=== PATIENT | female | born 1985 | race Caucasian/White ===

== ENCOUNTER 2023-07-05 06:38 | Emergency (ER) | payer OTHER, SELFPAY ==
--- NOTE | ~2023-07-05 | CT_ITS ---
EXAMINATION: CT ABDOMEN AND PELVIS WITH CONTRAST CLINICAL INFORMATION: Lower abdominal pain. COMPARISON: Pelvic ultrasound 07/05/2023 TECHNIQUE: Multidetector volumetric images were obtained from the superior aspect of the liver through the pubic symphysis following administration 85 mL of Omnipaque 350 intravenous contrast. Sagittal and coronal reformatted images were obtained on the technologist's workstation. Oral contrast: No This CT examination was performed using dose optimization techniques as appropriate, variously including the following: *Automated exposure control *Adjustment of mA and/or kV according to patient size (this includes techniques or standardized protocols for targeted exams where dose is matched to indication/reason for exam; i.e. extremities or head) *Use of iterative reconstruction technique DLP: 613 mGy-cm FINDINGS: LUNG BASES: No pleural or pericardial effusion. LIVER, GALLBLADDER, AND BILIARY TREE: The liver is decreased in attenuation. The liver measures 21.3 cm in sagittal dimension. No focal hepatic lesion or biliary ductal dilatation is present. The gallbladder is nonvisualized. There is extensive coarse calcification along the course of the cystic duct and in the gallbladder fossa. PANCREAS: Unremarkable. SPLEEN: Unremarkable. ADRENAL GLANDS: Unremarkable. KIDNEYS AND URETERS: The kidneys are symmetric in size and enhancement. Bilateral simple renal cysts. No hydronephrosis or perinephric stranding. BLADDER: Unremarkable. GASTROINTESTINAL TRACT: Small and large bowel loops are of normal caliber. No small bowel obstruction. Moderate fecal retention in the colon. ABDOMINAL WALL: No significant hernia is appreciated. LYMPH NODES: Subcentimeter retroperitoneal and mesenteric lymph nodes. VASCULAR: Normal caliber abdominal aorta. PELVIC VISCERA: Uterus is surgically absent. OSSEOUS STRUCTURES: No destructive bone lesions. CT/CT abdomen pelvis w IV con IMPRESSION: Nonvisualization of the gallbladder, however, there are coarse calcifications along the course of the cystic duct and within the gallbladder fossa. This could represent a contracted gallbladder with gallstones. Correlation may be made with fasting right upper quadrant ultrasound. Hepatomegaly and hepatic steatosis.
--- NOTE | ~2023-07-05 | US_ITS ---
EXAMINATION: US PELVIS CLINICAL INFORMATION: Pelvic pain. COMPARISON: None available. TECHNIQUE: Ultrasound of the pelvis is performed using both transabdominal and transvaginal transducers along with Doppler. Transvaginal imaging is performed due to inadequate visualization transabdominally. FINDINGS: Uterus: The uterus is not visualized. Adnexa: Neither ovary is visualized. No free fluid in pelvis. US/US pelvic and transvaginal IMPRESSION: Limited study. Unremarkable pelvic ultrasound.
[2023-07-05 08:00] VITALS: BP 136/84; PULSE 69; RESP 16; TEMP 36.6; O2SAT 99; BMI 29.4
[2023-07-05 08:24] LABS: MANUAL DIFF FLAG NO
[2023-07-05 08:31] LABS: Basophils Percent Auto 0.6 % (0-2); Eosinophils Absolute Auto 0.5 X10*3/uL (0.0-0.4); Eosinophils Percent Auto 7.3 % (0-4); Hematocrit 45.5 % (37.0-47.0); Hemoglobin 15.3 g/dl (12.0-16.0); Imm Gran Abs Auto 0.01 X10*3/uL (0.00-0.03); Imm Gran Pct Auto 0.2 % (0.0-0.4); Lymphocytes Absolute Auto 1.9 X10*3/uL (1.2-4.9); Lymphocytes Percent Auto 29.5 % (20-40); Mean Corpuscular HGB Conc 33.6 g/dl (31.0-35.0); Mean Corpuscular Volume 80.4 fL (80.0-98.0); Mean Platelet Volume 10.3 fL (9.4-12.3); Monocytes Absolute Auto 0.4 X10*3/uL (0.1-1.2); Monocytes Percent Auto 5.9 % (2-11); Neutrophils Absolute Auto 3.7 x10*3/uL (2.0-8.3); Neutrophils Percent Auto 56.5 % (45-73); Platelet Count 368 X10*3/uL (160-400); Red Blood Count 5.66 X10*6/uL (4.20-5.50); Red Cell Distribution Width 12.9 % (11.0-16.0); White Blood Count 6.5 X10*3/uL (4.8-10.8)
[2023-07-05 08:38] LABS: Appearance Urine Clear; Color Urine Yellow; Glucose Urine UA >=1000 mg/dL (Negative); Leukocyte Esterase Urine Negative (Negative); Nitrite Urine Negative (Negative); PH 5.5 (5.0-9.0); Specific Gravity - Urine >= 1.030 (1.005-1.025); UMIC TRIGGER UACC YES; Urine Blood Negative (Negative); Urine Ketones Negative (Negative); Urine Protein Negative (Neg-Trace)
[2023-07-05 08:40] LABS: UPreg QC Valid YES; Urine Pregnancy NEGATIVE (NEGATIVE)
[2023-07-05 08:41] LABS: Alanine Aminotransferase 16 U/L (0-31); Albumin Level 4.2 g/dL (3.5-5.0); Alkaline Phosphatase 126 U/L (39-117); Anion Gap 11 (12-20); Aspartate Amino Transferase 8 U/L (5-31); Bilirubin Total 0.3 mg/dL (0.0-1.0); Blood Urea Nitrogen 11 mg/dL (9-16); Calcium 9.9 mg/dL (8.4-10.2); Carbon Dioxide 28 mmol/L (22-29); Chloride 102 mmol/L (96-108); Creatinine Clr Calc Pharmacy 92.9; Estimated Glomerular Filt Rate > 60; Glucose Random 442 mg/dL (60-115); Sodium 137 mmol/L (135-145); Total Protein 8.3 g/dL (6.5-8.0)
[2023-07-05 08:43] LABS: Bacteria Urine None Seen (None Seen); Hyaline Casts Urine 0-2 /LPF (0-2); Squamous Epithelial Cell Urine 0-2 /HPF (0-2); WBC Urine 0-5 /HPF (0-5)
--- NOTE | 2023-07-05 09:53 | PC.NURSE ---
PT TO AND FROM ULTRASOUND. AWAITING RESULTS. NO ACUTE DISTRESS NOTED.
--- NOTE | 2023-07-05 09:57 | ED.GENADULT ---
HPI - General Adult General Chief complaint: General Medical Stated complaint: general med Time Seen by Provider: 07/05/23 09:10 Source: patient Mode of arrival: ambulatory Limitations: no limitations History of Present Illness HPI narrative: 38-year-old female history of obesity,diabetes ( no longer on medication because she stopped them) presents to the emergency department with complaints of lower abdominal discomfort, severe, pain described as pressure / pain worse with movement, lifting, better at rest ongoing for the past week. Patient also reports that she has been having some white thick vaginal discharge, this is also been going on for over week. Patient also reports intermittent dizziness over the past week and fatigue and malaise. Describes dizziness as room spinning. Not currently dizzy at this time. Denies visual disturbances, dizziness, nausea, vomiting, headache, vision changes, weakness, chest pain, shortness of breath, fevers and chills. Related Data Previous Rx's Medication Instructions Recorded fluconazole 150 mg tablet 150 mg PO Q3D 2 doses #2 tabs 07/05/23 metformin 500 mg tablet 500 mg PO BID 30 days #60 tabs 07/05/23 Allergies Allergy/AdvReac Type Severity Reaction Status Date / Time No Known Allergies Allergy Verified 07/05/23 08:15 Review of Systems Review of Systems: Constitutional : No Weight loss, No Fever, No Chills, No Fatigue, No Malaise ENT/Mouth : No sore throat, No Rhinorrhea Eyes: No Eye Pain, No Swelling, No Redness Cardiovascular : No Chest Pain, No SOB, No Dyspnea on Exertion, No Orthopnea, No Edema, No Palpitations Respiratory : No Cough, No Sputum, No Wheezing Gastrointestinal : No Nausea, No Vomiting, No Diarrhea, No Constipation, + abdominal Pain, No Hematochezia, No Melena Genitourinary : No Dysuria, No Urinary Frequency, No Hematuria, + vaginal discharge Musculoskeletal : No joint pain, No Myalgias, No Joint Swelling Skin : No Skin Lesions, No rash Neuro : No Weakness, No Numbness, No Dizziness, No Headache Psych : No Anxiety/Panic, No Depression All other systems reviewed and are negative Yes all other systems are reviewed and are negative PMFSH Social History Social History Smoked in Last 30 Days: No Use of substances other than those prescribed or required for medical reasons: No Advance Directives: No Physical Exam ED Vital Signs: Vital Signs - 24 hr 07/05/23 08:00 Temperature 97.8 F Pulse Rate 69 Respiratory Rate 16 Blood Pressure 136/84 Pulse Oximetry 99 Oxygen Delivery Method Room Air BMI result Body Mass Index 29.4 Course Reevaluation(s) Reevaluation #1: CBC within normal limits no acute findings. Chemistry without acute electrolyte abnormalities requiring intervention. Patient's glucose 442, as stated previously patient is a diabetic, is not taking medications because she stopped them. She used to be on metformin however not anymore. Patient's urine clean without infection. Urine negative. Ultrasound pelvic and transvaginal limited study unremarkable pelvic ultrasound, Doppler was canceled because patient then reported that she had a hysterectomy with oophorectomy. CT abd and pelvis pending and trich and yeast pending Time: 11:14 Reevaluation #2: Sugar improved to 245, patient feeling better, no pain at this time. Swab is showing positive yeast, will treat with fluconazole. Pending CT study patient will be discharged home with outpatient follow-up. Time: 11:26 Reevaluation #3: CT of the abdomen pelvis with no acute findings, nonvisualization of the gallbladder with coarse calcifications along the course of the cystic duct and within the gallbladder fossa could represent contracted gallbladder with gallstones. Patient's pain is not localized to right upper quadrant, negative Guzmán sign, I do not suspect acute cholecystitis, cholangitis, choledocholithiasis. No need for emergent intervention at this time. Will give GI follow-up. Will treat for yeast. Will have her follow up with PCP and GI. Educated patient on diagnosis and treatment plan, answered all question, patient verbalizes understanding. At this time patient will be discharged home, advised to return with new or worsening symptoms. Educated on worrisome signs and symptoms and when to return. At this time I feel comfortable discharge home. Time: 11:58 Medications Administered Discontinued Medications Generic Name Dose Route Start Last Admin Trade Name Freq PRN Reason Stop Dose Admin Sodium Chloride 1,000 mls @ 999 mls/hr 07/05/23 10:00 07/05/23 10:22 Ns IV 07/05/23 11:00 999 mls/hr .Q1H1M ALYSON Administration Insulin Human Regular 8 unit 07/05/23 09:54 07/05/23 10:30 Insulin Regular, Human 100 Unit/Ml 3 Ml Vial 0.1 unit/kg (8 unit) 07/05/23 09:55 8 unit IVPUSH Administration ONCE ONE Iohexol 100 ml 07/05/23 10:51 07/05/23 10:52 Iohexol 350 Mg/Ml 100 Ml Infus..Btl IV 07/05/23 10:52 85 ml ONCE ONE Administration Ketorolac Tromethamine 30 mg 07/05/23 10:28 07/05/23 10:34 Ketorolac Tromethamine 15 Mg/Ml Vial IVPUSH 07/05/23 10:29 30 mg ONCE ONE Administration Medical Decision Making Medical Decision Making [facility] Narrative: [id number] 38-year-old female presents with lower abdominal discomfort, vaginal discharge dizziness, fatigue and malaise over the past week. Reports she was diagnosed with diabetes years ago however non med compliant she stopped taking her medications when she came from [place] while ago. Physical examination benign. Neuro nonfocal. Cerebellar intact. NIH stroke scale 0. Concern for musculoskeletal abdominal discomfort versus hernia versus abdominal cramping unlikely appendicitis, diverticulitis, pancreatitis, cholecystitis. Patient with hysterectomy and oophorectomy, unlikely that this is torsion, ectopic , acute abdomen. Patient's white vaginal discharge likely yeast, denies concern for STDs. Also patient noted to have high sugar on initial labs, also contributing to the fact that this is most likely a yeast infection. Patient likely has poorly controlled type 2 diabetes, as she is not taking her medications. no signs of abdominal aortic dissection Plan at this time labs, imaging, orthostatic vitals, insulin, fluids. Will obtain Trichomonas and yeast test. Differential Diagnosis Differential Diagnoses: The differential diagnosis associated with the presentation includes Concern for musculoskeletal abdominal discomfort versus hernia versus abdominal cramping unlikely appendicitis, diverticulitis, pancreatitis, cholecystitis. Patient with hysterectomy and oophorectomy, unlikely that this is torsion, ectopic , acute abdomen. Patient's white vaginal discharge likely yeast, denies concern for STDs. Also patient noted to have high sugar on initial labs, also contributing to the fact that this is most likely a yeast infection. Patient likely has poorly controlled type 2 diabetes, as she is not taking her medications. no signs of abdominal aortic dissection Admission/Observation Consideration of admission/observation: Escalation of care including admission/observation considered unlikey Lab Data [facility] Lab Attestation statement: I reviewed the patient's lab results. 07/05/23 08:16 07/05/23 08:16 Labs: Lab Results 07/05/23 07/05/23 Range/Units 08:16 11:22 WBC 6.5 (4.8-10.8) X10*3/uL RBC 5.66 H (4.20-5.50) X10*6/uL Hgb 15.3 (12.0-16.0) g/dl Hct 45.5 (37.0-47.0) % MCV 80.4 (80.0-98.0) fL MCH 27.0 (27.0-33.0) pg MCHC 33.6 (31.0-35.0) g/dl RDW 12.9 (11.0-16.0) % Plt Count 368 (160-400) X10*3/uL MPV 10.3 (9.4-12.3) fL Immature Gran % (Auto) 0.2 (0.0-0.4) % Neut % (Auto) 56.5 (45-73) % Lymph % (Auto) 29.5 (20-40) % Whitley % (Auto) 5.9 (2-11) % Eos % (Auto) 7.3 H (0-4) % Baso % (Auto) 0.6 (0-2) % Lymph # (Auto) 1.9 (1.2-4.9) X10*3/uL Whitley # (Auto) 0.4 (0.1-1.2) X10*3/uL Eos # (Auto) 0.5 H (0.0-0.4) X10*3/uL Baso # (Auto) 0.0 (0.0-0.2) X10*3/uL Abs Immat Gran (auto) 0.01 (0.00-0.03) X10*3/uL Absolute Neuts (auto) 3.7 (2.0-8.3) x10*3/uL Absolute Nucleated RBC 0.000 (0.0-0.012) X10*3/uL Nucleated RBC % (auto) 0.0 (0.0-0.2) /100WBC Sodium 137 (135-145) mmol/L Potassium 4.0 (3.3-5.1) mmol/L Chloride 102 (96-108) mmol/L Carbon Dioxide 28 (22-29) mmol/L Anion Gap 11 L (12-20) BUN 11 (9-16) mg/dL Creatinine 0.85 (0.5-1.4) mg/dL Estim Creat Clear Calc 92.9 Estimated GFR > 60 POC Glucose 245 H (60-115) mg/dL Random Glucose 442 H* (60-115) mg/dL Calcium 9.9 (8.4-10.2) mg/dL Total Bilirubin 0.3 (0.0-1.0) mg/dL AST 8 (5-31) U/L ALT 16 (0-31) U/L Alkaline Phosphatase 126 H (39-117) U/L Total Protein 8.3 H (6.5-8.0) g/dL Albumin 4.2 (3.5-5.0) g/dL Urine Color Yellow Urine Appearance Clear Urine pH 5.5 (5.0-9.0) Ur Specific Slater >= 1.030 H (1.005-1.025) Urine Protein Negative (Neg-Trace) mg/dL Urine Glucose (UA) >=1000 H (Negative) mg/dL Urine Ketones Negative (Negative) mg/dL Urine Blood Negative (Negative) Urine Nitrite Negative (Negative) Ur Leukocyte Esterase Negative (Negative) Urine RBC 3-5 H (0-2) /HPF Urine WBC 0-5 (0-5) /HPF Ur Squamous Epith Cells 0-2 (0-2) /HPF Urine Bacteria None Seen (None Seen) Hyaline Casts 0-2 (0-2) /LPF Urine Test NEGATIVE (NEGATIVE) Core Measures AMI core measures followed: Yes Measure exclusions: not indicated Critical Care Time Critical Care Time Critical Care Time: No Discharge Plan Discharge Clinical Impression: Lower abdominal pain, Hyperglycemia, Yeast infection Patient Disposition: Home, Self-Care Instructions: Yeast Infection (ED), Abdominal Pain (ED), Diabetic Hyperglycemia (ED) Additional Instructions: Take your medications as prescribed. If you were prescribed antibiotics today, it is important that you take your medication to their entirety, do not skip any doses, do not finish them early. Follow-up with your primary care provider this week. Follow-up with telecine operator Return to the emergency department with new or worsening symptoms. Such as fevers, chills, chest pain, shortness of breath, nausea, vomiting, dizziness, headache, vision changes, lethargy In case of emergency call 911 your sugar was noted to be 442, since you are not on medications for diabetes, it is important that you start taking metformin 500 mg twice a day. Please follow-up with your primary care provider [place] [facility] medicamentos seg?n lo recetado. Si hoy te recetaron antibi?ticos, es importante que tomes tu medicaci?n en yadav totalidad, no te saltes ninguna dosis, no las termines antes de tiempo. Leif un seguimiento con yadav proveedor de atenci?n primaria esta semana. Seguimiento con gastroenter?logo. Regrese al departamento de emergencias si los s?ntomas son nuevos o empeoran. [place] fiebre, escalofr?os, dolor de pecho, dificultad para respirar, n?useas, v?mitos, mareos, dolor de thelma, cambios en la visi?n, letargo. En amisha de emergencia llame al 911. Se observ? que yadav nivel de az?car era 442, ya que no est? tomando medicamentos para la diabetes, es importante que comience a luis metformina 500 mg dos veces al d?a. Por favor leif un seguimiento con yadav proveedor de atenci?n primaria. CT/CT abdomen pelvis w IV con IMPRESSION: Nonvisualization of the gallbladder, however, there are coarse calcifications along the course of the cystic duct and within the gallbladder fossa. This could represent a contracted gallbladder with gallstones. Correlation may be made with fasting right upper quadrant ultrasound. Hepatomegaly and hepatic steatosis. US/US pelvic and transvaginal IMPRESSION: Limited study. Unremarkable pelvic ultrasound. Prescriptions: New metformin 500 mg tablet 500 mg PO BID 30 Days Qty: 60 0RF fluconazole 150 mg tablet 150 mg PO Q3D Qty: 2 0RF Referrals: Physician,Unknown J [Primary Care Provider] - 2 days Stand Alone Forms: Work/School Release Print Language: Swedish
[2023-07-05] MEDS: 0.9 % Sodium Chloride 1,000 ML 999 ML IV (10:22)
[2023-07-05] MEDS: Insulin Regular, Human 100 UNIT/ML 3 ML VIAL 8 UNIT IVPUSH (10:30)
[2023-07-05] MEDS: Ketorolac Tromethamine 15 MG/ML VIAL 30 MG IVPUSH (10:34)
[2023-07-05] MEDS: iohexoL 350 MG/ML 100 ML INFUS..BTL IV (10:52)
[2023-07-05 11:25] LABS: Glucose, Whole Blood 245 mg/dL (60-115)
== END 2023-07-05 12:26 | disposition home or self-care (01) ==
PROVIDERS: Emergency Provider Emergency Medicine
DX: R10.30 Lower abdominal pain, unspecified (principal); B37.9 Candidiasis, unspecified; N89.8 Other specified noninflammatory disorders of vagina; R42 Dizziness and giddiness; R53.83 Other fatigue; E11.65 Type 2 diabetes mellitus with hyperglycemia; Z91.148 Patient's other noncompliance with medication regimen for other reason; Z79.899 Other long term (current) drug therapy; Z79.4 Long term (current) use of insulin
CPT/HCPCS: 36415; 74177; 76830; 76856; 80053; 81001; 81025; 82947; 85025; 96361; 96374; 96375; 99284; J1885; Q9967

== ENCOUNTER 2023-12-28 11:28 | Emergency (ER) | payer OTHER, SELFPAY ==
--- NOTE | ~2023-12-28 | CT_ITS ---
EXAMINATION: CT ABDOMEN AND PELVIS WITH CONTRAST CLINICAL INFORMATION: Right lower quadrant pain. COMPARISON: CT abdomen pelvis dated 07/05/2023. TECHNIQUE: Multidetector volumetric images were obtained from the superior aspect of the liver through the pubic symphysis following administration 85 mL of Omnipaque 350 intravenous contrast. Sagittal and coronal reformatted images were obtained on the technologist's workstation. Oral contrast: No This CT examination was performed using dose optimization techniques as appropriate, variously including the following: *Automated exposure control *Adjustment of mA and/or kV according to patient size (this includes techniques or standardized protocols for targeted exams where dose is matched to indication/reason for exam; i.e. extremities or head) *Use of iterative reconstruction technique DLP: 668 mGy-cm FINDINGS: LUNG BASES: The lung bases are clear. There is no pleural effusion. Heart size is normal. No pericardial effusion. LIVER, GALLBLADDER, AND BILIARY TREE: The liver is enlarged, measuring 22 cm in craniocaudal dimension. It demonstrates diffuse decreased attenuation consistent with hepatic steatosis. No focal hepatic lesion or biliary ductal dilatation is present. The gallbladder is nonvisualized. There is extensive coarse calcification along the course of the cystic duct and in the gallbladder fossa, unchanged from prior exam. PANCREAS: Unremarkable. SPLEEN: Unremarkable. ADRENAL GLANDS: Unremarkable. KIDNEYS AND URETERS: The kidneys are normal in size, shape, and attenuation. No hydronephrosis, hydroureter, or calculi seen. No perinephric stranding. There are stable bilateral renal cysts. BLADDER: Unremarkable. GASTROINTESTINAL TRACT: The small bowel and colon are normal in caliber. There is no pericolonic inflammatory change. The appendix is not definitively visualized, however, there are no inflammatory changes within the right lower quadrant to indicate an acute inflammatory process. ABDOMINAL WALL: No significant hernia is appreciated. LYMPH NODES: No retroperitoneal or pelvic lymphadenopathy. VASCULAR: No abdominal aortic aneurysm. PELVIC VISCERA: The uterus is surgically absent. OSSEOUS STRUCTURES: Unremarkable. CT/CT abdomen pelvis w IV con IMPRESSION: The liver is enlarged and steatotic, similar to the prior examination. The gallbladder is nonvisualized. There is extensive coarse calcification along the course of the cystic duct and in the gallbladder fossa, unchanged from prior exam. The appendix is not definitively visualized, however, there are no inflammatory changes within the right lower quadrant to indicate an acute inflammatory process. Fleischner guidelines were followed.
--- NOTE | 2023-12-28 11:36 | ED_ITS ---
HPI - General Adult General Chief complaint: Nausea/Vomiting/Diarrhea Stated complaint: vomiting, lower abd pain Time Seen by Provider: 12/28/23 16:33 Source: patient Mode of arrival: ambulatory Limitations: no limitations History of Present Illness HPI narrative: This is a 38-year-old female history of poorly-controlled diabetes ( took her self off diabetic meds), recent hysterectomy presenting to the emergency department with complaints of lower abdominal pain , nausea, vomiting, fatigue and malaise for the past 3 days worsening. Patient reports she does S does not feel well. Patient is not med compliant with her diabetic medications havent been on them for years , she stopped metformin because it caused some GI upset. Feeling slightly lightheaded at times not now. She denies fevers, chills, chest pain, shortness of breath, headache, vision changes, diarrhea, changes in urination, headache, neck pain, recent sick contacts. Related Data Previous Rx's Medication Instructions Recorded fluconazole 150 mg tablet 150 mg PO Q3D 2 doses #2 tabs 07/05/23 metformin 500 mg tablet 500 mg PO BID 30 days #60 tabs 07/05/23 metformin 500 mg tablet 500 mg PO BID 60 days #120 tabs 12/28/23 Allergies Allergy/AdvReac Type Severity Reaction Status Date / Time No Known Allergies Allergy Verified 07/05/23 08:15 Review of Systems 2 Review of Systems: Yes all other systems are reviewed and are negative [facility] Past Medical History Attestation statement: The following information was validated with the patient. Source: old records reviewed and nursing notes reviewed Social History Social History Advance Directives: No Advance Directives Information Provided: No Physical Exam ED Vital Signs: Vital Signs - 24 hr 12/28/23 11:38 12/28/23 17:30 12/28/23 18:37 Temperature 97.0 F 98.9 F 98.3 F Pulse Rate 77 76 71 Respiratory Rate 16 20 16 Blood Pressure 125/78 133/73 123/77 Pulse Oximetry 98 99 99 Oxygen Delivery Method Room Air Room Air Room Air BMI result Body Mass Index 30.4 vss Appearance: Alert.? Oriented X3.? No acute distress.? Head: Normocephalic, atraumatic, no step-offs or deformities Eyes: Pupils equal, round and reactive to light.? Neck: Normal inspection.? Neck supple.? CVS: Normal heart rate and rhythm.? Pulses normal.? Respiratory: No respiratory distress.? Breath sounds normal.? Abdomen: Soft and nontender.? Skin: Skin warm and dry.? Normal skin color.? Normal skin turgor.? Extremities: No lower extremity edema.? No calf ttp. 5/5 strength to bilateral upper and lower extremities Neuro: Oriented X 3.? No motor deficit.? No sensory deficit. CN 2-12 intact Course Course Course Narrative: RME- 38 year old female presents for evaluation of lower abdominal pain for the last 3 days, She reports she is status post total hysterectomy. Also complains of vomiting. Plan for labs, UA. Imaging will be deferred to primary provider Reevaluation(s) Reevaluation #1: CBC with no acute findings requiring intervention. Chemistry no acute electrolyte abnormalities requiring intervention. Chronically elevated alk-phos and total protein. This can be followed up by PCP. Patient's random glucose 423 initially after hydration 289 patient is still has fluids left. Much improved not requiring insulin at this time. Patient has been on metformin in the past and had GI symptoms so she decided to stop it I explained her she can try again to try to control her sugars. I did give her handout with PCPs in the area. Scan pending. Will discharge after scan comes back as long as there has no acute findings. Patient's pain improved. Time: 18:15 Reevaluation #2: Patient eating and drinking Time: 18:21 Reevaluation #3: Ct abd no acute findings patient w/o pain at this time tolelrating po improved sugar plan pcp follow up which patient now tells me she has one out of anselmo Medications Administered Discontinued Medications Generic Name Dose Route Start Last Admin Trade Name Freq PRN Reason Stop Dose Admin Sodium Chloride 1,000 mls @ 999 mls/hr 12/28/23 17:00 12/28/23 17:57 Ns IV 12/28/23 18:00 999 mls/hr .Q1H1M ALYSON Administration Insulin Human Regular 5 unit 12/28/23 17:55 12/28/23 18:01 Insulin Regular, Human 100 Unit/Ml 3 Ml Vial IVPUSH 12/28/23 17:56 Not Given ONCE ONE Iohexol 85 ml 12/28/23 17:14 12/28/23 17:20 Iohexol 350 Mg/Ml 100 Ml Infus..Btl IV 12/28/23 17:15 85 ml ONCE ONE Administration Ketorolac Tromethamine 15 mg 12/28/23 18:21 12/28/23 18:38 Ketorolac Tromethamine 15 Mg/Ml Vial IVPUSH 12/28/23 18:22 15 mg ONCE ONE Administration Medical Decision Making Medical Decision Making [facility] Narrative: 38-year-old female presents with lower abdominal discomfort, fatigue and malaise, nausea/vomit x3 days. Non med compliant ( hasnt taken meds in years) Physical examination lower abdominla discomfort throughout Concern for diabetic gastroparesis versus hernia versus abdominal cramping unlikely appendicitis, diverticulitis, pancreatitis, cholecystitis, acute abdomen. Patient with hysterectomy and oophorectomy, unlikely that this is torsion, ectopic , acute abdomen. Patient likely has poorly controlled type 2 diabetes, as she is not taking her medications will rule out DKA. Plan- labs, imaging Differential Diagnosis Differential Diagnoses: The differential diagnosis associated with the presentation includes Concern for diabetic gastroparesis versus hernia versus abdominal cramping unlikely appendicitis, diverticulitis, pancreatitis, cholecystitis, acute abdomen. Patient with hysterectomy and oophorectomy, unlikely that this is torsion, ectopic , acute abdomen. Patient likely has poorly controlled type 2 diabetes, as she is not taking her medications will rule out DKA. Admission/Observation Consideration of admission/observation: Escalation of care including admission/observation considered Lab Data [facility] Lab Attestation statement: I reviewed the patient's lab results. 12/28/23 11:45 12/28/23 11:45 Labs: Lab Results 12/28/23 12/28/23 12/28/23 Range/Units 11:45 16:40 17:59 WBC 6.1 (4.8-10.8) X10*3/uL RBC 5.92 H (4.20-5.50) X10*6/uL Hgb 15.8 (12.0-16.0) g/dl Hct 46.5 (37.0-47.0) % MCV 78.5 L (80.0-98.0) fL MCH 26.7 L (27.0-33.0) pg MCHC 34.0 (31.0-35.0) g/dl RDW 12.8 (11.0-16.0) % Plt Count 360 (160-400) X10*3/uL MPV 10.0 (9.4-12.3) fL Immature Gran % (Auto) 0.3 (0.0-0.4) % Neut % (Auto) 47.1 (45-73) % Lymph % (Auto) 39.2 (20-40) % [place] % (Auto) 5.0 (2-11) % Eos % (Auto) 7.9 H (0-4) % Baso % (Auto) 0.5 (0-2) % Lymph # (Auto) 2.4 (1.2-4.9) X10*3/uL [place] # (Auto) 0.3 (0.1-1.2) X10*3/uL Eos # (Auto) 0.5 H (0.0-0.4) X10*3/uL Baso # (Auto) 0.0 (0.0-0.2) X10*3/uL Abs Immat Gran (auto) 0.02 (0.00-0.03) X10*3/uL Absolute Neuts (auto) 2.9 (2.0-8.3) x10*3/uL Absolute Nucleated RBC 0.000 (0.0-0.012) X10*3/uL Nucleated RBC % (auto) 0.0 (0.0-0.2) /100WBC VBG pH 7.41 (7.32-7.43) VBG pCO2 47 mmHg VBG pO2 24 mmHg VBG HCO3 30 H (22-26) mmol/L VBG O2 Saturation 35.0 % VBG Base Excess 4.7 mmol/L Sodium 139 (135-145) mmol/L Potassium 4.6 (3.3-5.1) mmol/L Chloride 103 (96-108) mmol/L Carbon Dioxide 26 (22-29) mmol/L Anion Gap 15 (12-20) BUN 11 (9-16) mg/dL Creatinine 0.95 (0.5-1.4) mg/dL Estim Creat Clear Calc 81.4 Estimated GFR > 60 POC Glucose 289 H (60-115) mg/dL Random Glucose 423 H* (60-115) mg/dL Calcium 10.0 (8.4-10.2) mg/dL Total Bilirubin 0.4 (0.0-1.0) mg/dL AST 9 (5-31) U/L ALT 16 (0-31) U/L Alkaline Phosphatase 122 H (39-117) U/L Total Protein 8.2 H (6.5-8.0) g/dL Albumin 4.0 (3.5-5.0) g/dL Lipase 13 (8-78) U/L Beta-Hydroxybutyrate 0.11 (0.02-0.27) mmol/L Beta HCG, Quant < 2 mIU/mL Influenza Type A (PCR) NEGATIVE (Negative) Influenza Type B (PCR) NEGATIVE (Negative) RSV RNA Qual (PCR) NEGATIVE (Negative) SARS-CoV-2 RNA (RT-PCR) NEGATIVE (Negative) Independent Interpretation I performed an independent interpretation of an: CT Scan Radiology Impression Discussion of test interpretation with radiology: I have reviewed the radiologist's reading. Critical Care Time Critical Care Time Critical Care Time: Yes Total Critical Care Time: 35 Attestation: I attest to this time spent taking care of the patient, obtaining history, physical, reviewing labs, imaging, speaking to my attending, Discharge Plan Discharge Clinical Impression: Diabetes, Acute hyperglycemia, Abdominal pain Patient Disposition: Home, Self-Care Instructions: What is Insulin (ED), Abdominal Pain (ED), Diabetic Hyperglycemia (ED), Diabetes and Nutrition (ED), Diabetes and Exercise (ED) Additional Instructions: Take your medications as prescribed. If you were prescribed antibiotics today, it is important that you take your medication to their entirety, do not skip any doses, do not finish them early. Follow-up with your primary care provider this week. Follow-up with graffiti cleaner Return to the emergency department with new or worsening symptoms. Such as fevers, chills, chest pain, shortness of breath, nausea, vomiting, dizziness, headache, vision changes, lethargy In case of emergency call 911 your sugar was noted to be 442, since you are not on medications for diabetes, it is important that you start taking metformin 500 mg twice a day. Please follow-up with your primary care provider CT/CT abdomen pelvis w IV con IMPRESSION: The liver is enlarged and steatotic, similar to the prior examination. The gallbladder is nonvisualized. There is extensive coarse calcification along the course of the cystic duct and in the gallbladder fossa, unchanged from prior exam. The appendix is not definitively visualized, however, there are no inflammatory changes within the right lower quadrant to indicate an acute inflammatory process. Morse ab medicamentos seg?n lo recetado. Si hoy te recetaron antibi?ticos, es importante que tomes tu medicaci?n en yadav totalidad, no te saltes ninguna dosis, no las termines antes de tiempo. Leif un seguimiento con yadav proveedor de atenci?n primaria esta semana. Seguimiento con gastroenter?logo. Regrese al departamento de emergencias si los s?ntomas son nuevos o empeoran. [place] fiebre, escalofr?os, dolor de pecho, dificultad para respirar, n?useas, v?mitos, mareos, dolor de thelma, cambios en la visi?n, letargo. En amisha de emergencia llame al 911. Se observ? que yadav nivel de az?car era 442, ya que no est? tomando medicamentos para la diabetes, es importante que comience a luis metformina 500 mg dos veces al d?a. Por favor leif un seguimiento con yadav proveedor de atenci?n primaria. Prescriptions: New metformin 500 mg tablet 500 mg PO BID 60 Days Qty: 120 0RF No Action metformin 500 mg tablet 500 mg PO BID 30 Days Qty: 60 0RF fluconazole 150 mg tablet 150 mg PO Q3D Qty: 2 0RF Referrals: Physician,Unknown J [Primary Care Provider] - 2 days
[2023-12-28 11:38] VITALS: BP 125/78; PULSE 77; RESP 16; TEMP 36.1; O2SAT 98; BMI 30.4
[2023-12-28 11:52] LABS: MANUAL DIFF FLAG NO
[2023-12-28 11:54] LABS: Basophils Percent Auto 0.5 % (0-2); Eosinophils Absolute Auto 0.5 X10*3/uL (0.0-0.4); Eosinophils Percent Auto 7.9 % (0-4); Hematocrit 46.5 % (37.0-47.0); Hemoglobin 15.8 g/dl (12.0-16.0); Imm Gran Abs Auto 0.02 X10*3/uL (0.00-0.03); Imm Gran Pct Auto 0.3 % (0.0-0.4); Lymphocytes Absolute Auto 2.4 X10*3/uL (1.2-4.9); Lymphocytes Percent Auto 39.2 % (20-40); Mean Corpuscular Hemoglobin 26.7 pg (27.0-33.0); Mean Corpuscular Volume 78.5 fL (80.0-98.0); Monocytes Absolute Auto 0.3 X10*3/uL (0.1-1.2); Neutrophils Absolute Auto 2.9 x10*3/uL (2.0-8.3); Neutrophils Percent Auto 47.1 % (45-73); Platelet Count 360 X10*3/uL (160-400); Red Blood Count 5.92 X10*6/uL (4.20-5.50); Red Cell Distribution Width 12.8 % (11.0-16.0); White Blood Count 6.1 X10*3/uL (4.8-10.8)
[2023-12-28 12:32] LABS: Alanine Aminotransferase 16 U/L (0-31); Alkaline Phosphatase 122 U/L (39-117); Anion Gap 15 (12-20); Aspartate Amino Transferase 9 U/L (5-31); Bilirubin Total 0.4 mg/dL (0.0-1.0); Blood Urea Nitrogen 11 mg/dL (9-16); Carbon Dioxide 26 mmol/L (22-29); Chloride 103 mmol/L (96-108); Creatinine Clr Calc Pharmacy 81.4; Estimated Glomerular Filt Rate > 60; Glucose Random 423 mg/dL (60-115); HCG Quantitative < 2 mIU/mL; Lipase 13 U/L (8-78); Potassium 4.6 mmol/L (3.3-5.1); Sodium 139 mmol/L (135-145); Total Protein 8.2 g/dL (6.5-8.0)
[2023-12-28 12:36] LABS: Influenza A PCR NEGATIVE (Negative); Influenza B PCR NEGATIVE (Negative); Resp Syncy Virus RNA Qual PCR NEGATIVE (Negative); SARS COV2 PCR INHOUSE NEGATIVE (Negative)
[2023-12-28 16:47] LABS: VBG Base Excess 4.7 mmol/L; VBG HCO3 30 mmol/L (22-26); VBG pCO2 47 mmHg; VBG pH 7.41 (7.32-7.43); VBG pO2 24 mmHg; Venous Blood Gas Refer to POC result
[2023-12-28 16:57] LABS: Beta-Hydroxybutyrate 0.11 mmol/L (0.02-0.27)
[2023-12-28] MEDS: iohexoL 350 MG/ML 100 ML INFUS..BTL 85 ML IV (17:20)
[2023-12-28 17:30] VITALS: BP 133/73; PULSE 76; RESP 20; TEMP 37.2; O2SAT 99
[2023-12-28] MEDS: 0.9 % Sodium Chloride 1,000 ML 999 ML IV (17:57)
[2023-12-28 18:02] LABS: Glucose, Whole Blood 289 mg/dL (60-115)
[2023-12-28 18:37] VITALS: BP 123/77; PULSE 71; RESP 16; TEMP 36.8; O2SAT 99
[2023-12-28] MEDS: Ketorolac Tromethamine 15 MG/ML VIAL IVPUSH (18:38)
[2023-12-28 19:10] VITALS: BP 118/73; PULSE 70; RESP 16; O2SAT 99
[2023-12-28 19:19] LABS: Appearance Urine Clear; Color Urine Yellow; Glucose Urine UA >=1000 mg/dL (Negative); Leukocyte Esterase Urine Negative (Negative); Nitrite Urine Negative (Negative); PH 5.5 (5.0-9.0); Specific Gravity - Urine >= 1.030 (1.005-1.025); UMIC TRIGGER UACC YES; Urine Blood Negative (Negative); Urine Ketones Negative (Negative); Urine Protein Negative (Neg-Trace)
[2023-12-28 19:38] LABS: Bacteria Urine None Seen (None Seen); Hyaline Casts Urine 0-2 /LPF (0-2); RBC Urine 0-2 /HPF (0-2); Squamous Epithelial Cell Urine 0-2 /HPF (0-2); WBC Urine 0-5 /HPF (0-5)
== END 2023-12-28 19:42 | disposition home or self-care (01) ==
PROVIDERS: Physician Assistant; Emergency Provider Emergency Medicine
DX: R10.30 Lower abdominal pain, unspecified (principal); E11.65 Type 2 diabetes mellitus with hyperglycemia; Z90.710 Acquired absence of both cervix and uterus; Z90.721 Acquired absence of ovaries, unilateral; Z11.52 Encounter for screening for COVID-19; Z20.828 Contact with and (suspected) exposure to other viral communicable diseases
CPT/HCPCS: 0241U; 36415; 74177; 80053; 81001; 82010; 82803; 82947; 83690; 84702; 85025; 96361; 96374; 96375; 99284; J1885; Q9967

== ENCOUNTER 2024-04-16 11:18 | Emergency (ER) | payer OTHER, SELFPAY ==
--- NOTE | ~2024-04-16 | XR_ITS ---
EXAMINATION: XR HIP, LEFT CLINICAL INFORMATION: Left hip pain. COMPARISON: CT abdomen/pelvis 12/28/2023. TECHNIQUE: Two views of the left hip. FINDINGS: No acute fracture or subluxation. 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 SI joints are symmetric. Pubic symphysis and pelvic rami are maintained. No significant soft tissue abnormality. XR/XR hip LT w PEL1V IMPRESSION: 1. No acute fracture or subluxation. 2. 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
[2024-04-16 11:24] VITALS: BP 99/77; PULSE 88; RESP 18; TEMP 36.7; O2SAT 100; BMI 31.2
--- NOTE | 2024-04-16 11:25 | ED.GENADULT ---
HPI - General Adult General Chief complaint: Extremity Injury, Lower Stated complaint: foot pain Time Seen by Provider: 04/16/24 11:24 Source: patient and certified court/medical interpreter (all interactions with this patient were facilitated via an [facility] historic interpreter) Mode of arrival: ambulatory Limitations: language barrier (all interactions with this patient were facilitated via an [facility] historic interpreter) History of Present Illness ED Provider: Tawny Conrad PA-C HPI narrative: 39-year-old female presents for evaluation of left hip pain since a fall in [place] 1 year ago. The pain is sharp, radiates down her left leg, worsened by movement. 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 MD complaint: Left hip pain Onset (ago): year(s) (1) Location: left and lower extremity Radiation: distal Quality: sharp Pain Consistency: constant Relieving factors: rest Exacerbating factors: movement Associated symptoms: denies other symptoms Related Data Previous Rx's ?Medication ?Instructions ?Recorded fluconazole 150 mg tablet 150 mg PO Q3D 2 doses #2 tabs 07/05/23 metformin 500 mg tablet 500 mg PO BID 30 days #60 tabs 07/05/23 metformin 500 mg tablet 500 mg PO BID 60 days #120 tabs 12/28/23 celecoxib 200 mg capsule (Celebrex) 200 mg PO BID 2 weeks #28 caps 04/16/24 Allergies Allergy/AdvReac Type Severity Reaction Status Date / Time No Known Allergies Allergy Verified 04/16/24 11:27 Review of Systems Constitutional: Constitutional: Reports no additional constitutional complaints, Denies chills, Denies fever(s) and Denies night sweats Eyes: Eyes: Reports no additional eye complaints, Denies blurry vision, Denies change in vision, Denies diplopia, Denies eye discharge, Denies loss of vision and Denies eye pain ENT: Denies dizziness Cardiovascular: Cardiovascular: Reports no additional cardiovascular complaints, Denies chest pain, Denies lightheadedness, Denies Loss of Consciousness and Denies dyspnea Respiratory: Respiratory: Reports no additional respiratory complaints and Denies dyspnea Gastrointestinal: Gastrointestinal: Reports no additional gastrointestinal complaints, Denies abdominal pain, Denies melena, Denies hematochezia, Denies change in bowel habits and Denies change in stool character Genitourinary: Genitourinary: Denies hematuria, Denies urinary frequency, Denies dysuria, Denies urinary incontinence, Denies urinary hesitancy and Denies urinary urgency Musculoskeletal: Musculoskeletal: Reports arthralgias (Left hip, radiates down left leg), Denies numbness and Denies tingling Neurologic: Denies dizziness, Denies loss of vision, Denies numbness and Denies tingling Psychiatric: Psychiatric: Reports no additional psychiatric complaints Endocrine: Endocrine: Reports no additional endocrine complaints Hematologic/Lymphatic: Hematologic/Lymphatic: Reports no additional hematologic/lymphatic complaints Allergic/Immunologic: Allergic/Immunologic: Reports no additional allergic/immunologic complaints PMFSH Past Medical History Attestation statement: The following information was validated with the patient. Source: old records reviewed and nursing notes reviewed Social History Social History Advance Directives: No Advance Directives Information Provided: No Do you have a plan to hurt others: No Plan Physical Exam ED Vital Signs: Vital Signs - 24 hr 04/16/24 11:24 04/16/24 12:31 Temperature 98.1 F 98.1 F Pulse Rate 88 88 Respiratory Rate 18 18 Blood Pressure 99/77 99/77 Pulse Oximetry 100 100 Oxygen Delivery Method Room Air Room Air BMI result Body Mass Index 31.2 Const General: cooperative, no acute distress, alert and awake Nutritional Appearance: well nourished Orientation/consciousness: patient oriented x3 Limitations: no limitations [facility] Head: Yes normal to inspection and Yes atraumatic Ears: hearing grossly normal bilaterally and external ears normal General nose exam: Normal external nose present, no nasal discharge noted and no epistaxis Face and sinus: Yes normal facial exam, No abrasion and No laceration Mouth: Normal oral and palatal mucosa present, no drooling and no muffled voice Eyes General: appearance normal, both eyes and all related structures Periorbital: periorbital findings normal Eyelids: Yes eyelids normal Conjunctivae: conjunctivae normal Pupils: Equal, round and reactive pupils present EOM: EOMs intact bilaterally Neck Neck: Yes normal visual inspection, Yes full ROM and Yes no lymphadenopathy Chest Chest palpation & inspection: normal inspection of the chest Resp Effort & Inspection: normal respiratory effort and able to speak in complete sentences GI Inspection: Yes normal to inspection Neuro General: patient oriented x3 and moves all extremities Cranial nerves: Yes Equal, round and reactive pupils present Cognition (Neuro): normal cognition Motor exam (neuro): 5/5 motor strength present throughout Sensory Exam: Normal double simultaneous stimulation for sensation Coordination: [id number] test normal Extrem General: Yes normal to inspection, Yes capillary refill normal and Yes normal exam except as noted Left lower extremity: no joint enlargement and hip/thigh Details: abnormal ROM Details: pain with active ROM Details: with extension and with flexion Psych Appearance: grossly normal Mental Status: mental status grossly normal Affect: normal affect Attitude: cooperative Thought process: Normal thought process present Thought content: Normal thought content present Insight: Good insight present (Psych) Course Course Course Narrative: This is an RME done by ALIVIA Miramontes: Additional HPI, ROS, PE not included below will be deferred to primary provider. 39 yo f hx DM presents w/ left hip pain w/ radiation to left lower extremity x 1 year. Started a year ago when she fell off her bed. Worsening recently due to new job where she is active. Her pain is better w/ rest worse w/ movement and weight bearing. Denies numbness, tingling Appearance: Alert.? Oriented X3.? No acute cardiopulmonary distress distress.? Head: Normocephalic, atraumatic, no step-offs or deformities Neck: Normal inspection.? Neck supple.? CVS: Pulses normal.? Respiratory: No respiratory distress.? Skin: ? Normal skin color. Extremities: 5/5 strength to bilateral upper and lower extremities. Ambulating into triage w/o difficulties Neuro: Oriented X 3.? No motor deficit.? No sensory deficit. Medications Administered Discontinued Medications Generic Name Dose Route Start Last Admin Trade Name Freq PRN Reason Stop Dose Admin Ketorolac Tromethamine 15 mg 04/16/24 12:17 04/16/24 12:26 Ketorolac Tromethamine 15 Mg/Ml Vial IM 04/16/24 12:18 15 mg ONCE ONE Administration Medical Decision Making Medical Decision Making [facility] Narrative: Patient is a 39 year old assigned female at with a history of chronic left hip pain presenting to the emergency department today with acute on chronic left hip pain. Patient's physical exam was unremarkable. Patient's left hip x-ray showed no acute process but did show trace bilateral degenerative OA. I explained my physical exam findings as well as all test results to the patient. I answered all questions asked by the patient. Patient received IM Toradol which she stated helped her symptoms significantly. I stressed the importance of the patient taking her medication as prescribed. I stressed the importance of the patient following up with her primary care provider and given this has been causing her such issue over the last year, a pain specialist. I stressed the importance of the patient returning to the emergency department immediately if her symptoms were to worsen or if [he/she/they] were to develop any dizziness, shortness of breath, difficulty breathing, chest pain, blurry vision, loss of vision, nausea, vomiting, abdominal pain, fever, chills, back pain, or any other complaints. Patient verbalized agreement and understanding with this treatment plan and discharge. Differential Diagnosis Differential Diagnoses: The differential diagnosis associated with the presentation includes Left hip fracture Sciatica Muscle strain OA Admission/Observation Consideration of admission/observation: Escalation of care including admission/observation considered Patient would have been admitted to the hospital had her work up had any findings where hospital admission was appropriate and her clinical presentation warranted hospital admission. Independent Interpretation I performed an independent interpretation of an: Plain X-Ray Interpretation: My interpretation is in agreement with the radiologist's impression of this imaging study. EXAMINATION: XR HIP, LEFT CLINICAL INFORMATION: Left hip pain. COMPARISON: CT abdomen/pelvis 12/28/2023. TECHNIQUE: Two views of the left hip. FINDINGS: No acute fracture or subluxation. 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 SI joints are symmetric. Pubic symphysis and pelvic rami are maintained. No significant soft tissue abnormality. XR/XR hip LT w PEL1V IMPRESSION: 1. No acute fracture or subluxation. 2. 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 Dictated By: Deepali Coughlin Signed By: Electronically signed by Deepali Coughlin 04/16/24 1158 Radiology Impression Discussion of test interpretation with radiology: I have reviewed the radiologist's reading. Prescription Management I considered prescription management with: Pain Medication (patient prescribed pain medication) Discharge Plan Discharge Clinical Impression: Acute hip pain Patient Disposition: Home, Self-Care Instructions: Hip Pain (ED) Additional Instructions: Follow up with your primary care provider. Return to the emergency department immediately if your symptoms worsen or if you develop any dizziness, shortness of breath, difficulty breathing, chest pain, blurry vision, loss of vision, nausea, vomiting, abdominal pain, fever, chills, back pain, or any other complaints. Danay?seguimiento?con yadav m?dico de atenci?n primaria. Acuda inmediatamente al servicio de urgencias si ab s?ntomas empeoran o si presenta falta de aliento, dificultad para respirar, dolor tor?cico, mareos, aturdimiento, dolor de espalda, dolor abdominal, fiebre, escalofr?os o cualquier otro s?ntoma. Prescriptions: New celecoxib [Celebrex] 200 mg capsule 200 mg PO BID 14 Days Qty: 28 0RF No Action metformin 500 mg tablet 500 mg PO BID 30 Days Qty: 60 0RF fluconazole 150 mg tablet 150 mg PO Q3D Qty: 2 0RF metformin 500 mg tablet 500 mg PO BID 60 Days Qty: 120 0RF Referrals: [facility] Family [facility] [Provider Group] (Call to establish and follow up with a primary care provider. If you already have a primary care provider, please follow up with them.) [facility] Primary CareMehrdad [Provider Group] [facility] Primary CareRubne [Provider Group] [facility] Pain Management [Provider Group] (Call to establish and follow up with a pain specialist.) Stand Alone Forms: Work/School Release Interventions: ED Discharge Assessment Last Done: 04/16/24 12:31 Discharge Date/Time: 04/16/24 12:32 Print Language: Irish
[2024-04-16] MEDS: Ketorolac Tromethamine 15 MG/ML VIAL IM (12:26)
[2024-04-16 12:31] VITALS: BP 99/77; PULSE 88; RESP 18; TEMP 36.7; O2SAT 100
== END 2024-04-16 12:32 | disposition home or self-care (01) ==
PROVIDERS: Emergency Provider Emergency Medicine
DX: M25.552 Pain in left hip (principal); M79.605 Pain in left leg; M79.604 Pain in right leg
CPT/HCPCS: 73502; 96372; 99283; 99284; J1885

== ENCOUNTER 2024-04-22 13:12 | Outpatient (AMB) | payer OTHER, SELFPAY ==
--- NOTE | 2024-04-22 13:26 | MHC.OFFVIS ---
Vital Signs 04/22/24 13:34 Height 5 ft 6 in Weight 174 lb BMI 28.1 BP 117/82 Blood Pressure Location Lt brachial Position Sitting Pulse 87 Pulse Source Pulse Oximeter Pulse Oximetry (%) 98 Oxygen Delivery Method Room Air Intake Visit Reasons: LEFT HIP PAIN/[facility] ED referral Intake Note: Pain today 04/07 Printing Table Hand Required: Yes Printing Table Hand Language: Supervisor Porcelain Department Name: [facility] Accompanied by: Spouse Allergies No Known Allergies Allergy (Verified 04/16/24 11:27) HPI HPI LEFT HIP PAIN/[facility] ED referral: Details: Patient is a 39-year-old Japanese-speaking female presents today for initial evaluation of low back pain radiating into her left hip. Patient reports left hip pain since mechanical fall in [place] 1 year ago. She was referred to us by [facility] ER provider after ER visit on 04/16/24. 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 Back pain is axial and radiates into her left buttock and left groin and lateral hip. She reports significant left groin pain and low back pain with provocative testing for SI joint pain. Pain affects her daily activities and functioning, mobility, sleep, work, house chores and social interactions. Complete medical and surgical history is not available today. Patient states she is diabetic with uncontrolled blood sugars. Reports she does not check her blood sugars regularly and shows me on her iPhone most recent blood sugar was 354 on 04/16/24. Patient states she she takes metformin irregularly due to GI upset symptoms. She has not seen primary care provider for a while and is in the process of establishing care with new PCP at [facility] this Sunday. Patient has tried to manage her symptoms with Tylenol at home and more recently tried Celebrex with minimal pain relief. To this point, patient has not tried any dedicated conservative treatment in the forms of physical therapy, chiropractic, acupuncture, massage, or injections. She is interested to start physical therapy. Denies any fever, chills, weight loss, abdominal pain, weakness, footdrop, numbness or tingling, bladder or bowel dysfunction or saddle anesthesia. Ambulates with normal gait with occasional limping favoring right side. Location: Low back with radiation into left groin and left hip Duration: 1 year Characteristics of symptom or complaint: Aching, throbbing, sore, heavy, radiating, spasming, sharp Aggravating or associated factors: Sleeping, walking, work, bending, pulling, lifting, movements Relieving factors: Sitting, rest, heat/ice, Tylenol, NSAID Treatment: ER visit 04/16/24 [facility] Medical History (Updated 04/23/24 @ 09:26 by JEFFERSON Balderas) Left hip pain Arthritis Type 2 diabetes mellitus Review of Systems Const All systems reviewed & are unremarkable except as noted in HPI and below Physical Exam Vital Signs: Last Vital Signs Pulse 87 04/22/24 13:34 BP 117/82 04/22/24 13:34 Pulse Ox 98 04/22/24 13:34 Oxygen Delivery Method Room Air 04/22/24 13:34 BMI result Body Mass Index 28.1 General: Appears afebrile. Alert and oriented. Mood and affect appropriate. Follows and participates in conversation appropriately. Respiratory effort is unlabored. No cough. Able to transition from sit to stand unassisted. Ambulates with bilaterally normal heel strike and toe off. Back/Spine/Pelvis Other: Patient is able to walk and stand on heels and tip toes with mild difficulty on the left, demonstrating good motor tone. Normal gait, with mild limping. Can flex forward to 70-75 degrees and extend to 5-10 degrees before experiencing lumbar pain. Demonstrates 5/5 right and 4/5 left due to pain strength of quadriceps bilaterally as well as flexion/dorsiflexion of bilateral feet against resistance. 2+ pedal pulses bilaterally. Straight leg rise with dorsiflexion negative bilaterally. +2 patellar and achilles reflexes bilaterally. Facet loading test positive bilaterally. Lalit sign, Oscar?s, Gaenslen, Pelvic compression and Stinchfield tests are positive bilaterally. No groin pain with I/E hip rotations. Significant paraspinals tenderness mostly on the right/left side, thoracic/mid and lower back. Valsalva maneuver negative. Results Reviewed Results Reviewed: XR HIP, LEFT 04/16/24 CLINICAL INFORMATION: Left hip pain. COMPARISON: CT abdomen/pelvis 12/28/2023. TECHNIQUE: Two views of the left hip. FINDINGS: No acute fracture or subluxation. 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 SI joints are symmetric. Pubic symphysis and pelvic rami are maintained. No significant soft tissue abnormality. IMPRESSION: 1. No acute fracture or subluxation. 2. 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 Assessment & Plan Assessment & Plan (1) Lumbosacral spondylosis: Code(s): M47.817 - Spondylosis without myelopathy or radiculopathy, lumbosacral region Category: Medical (2) Left hip pain: Code(s): M25.552 - Pain in left hip Category: Medical (3) Low back pain: Code(s): M54.50 - Low back pain, unspecified Category: Medical (4) Sacroiliac joint pain: Code(s): M53.3 - Sacrococcygeal disorders, not elsewhere classified Category: Medical Plan Lumbar spine imaging to assess degree of degenerative changes, any subluxation, listhesis, compression fractures or pars defects. Unfortunately patient is not candidate for therapeutic steroid injections, Sprint PNS trial or implantable devices due to risks associated with uncontrolled diabetes.?She is encouraged to keep her Sunday's appt to establish PCP care at [place]. We will request complete medial and surgical history from her new PCP once established, she is also in the process of obtaining previous records from [place]. Emphasized importance of regular monitoring of blood sugars and adhering to ADA diet, weight optimization, adequate hydration and daily physical activity. Recommend formal physical therapy to reduce pain and optimize mobility, improve strength, proprioception, and neuromuscular coordination. Script provided. Continue Tylenol and Celebrex. Script provided for lidocaine patches. All questions and concerns have been answered and patient agreed with the treatment plan. Follow-up after physical therapy and sooner as needed. Orders: Orders PT Evaluation and Treatment 04/22/24 M25.552 - Pain in left hip, M47.817 - Spondylosis without myelopathy or radiculopathy, lumbosacral region, M54.50 - Low back pain, unspecified XR lumbar spine 4V min 04/22/24 M25.552 - Pain in left hip, M47.817 - Spondylosis without myelopathy or radiculopathy, lumbosacral region Medications: New lidocaine 5% leave on most painful area for up to 12 hrs topical 30 ea 0RF pain M47.817 - Spondylosis without myelopathy or radiculopathy, lumbosacral region, M54.50 - Low back pain, unspecified Coding Level of Care Code New Pt Level 4 (51089) Diagnoses Lumbosacral spondylosis M47.817 Left hip pain M25.552 Low back pain M54.50 Sacroiliac joint pain M53.3
[2024-04-22 13:34] VITALS: BP 117/82; PULSE 87; O2SAT 98; BMI 28.1
== END 2024-04-22 14:03 | disposition home or self-care (01) ==
PROVIDERS: Visit Provider Nurse Practitioner Family
DX: M47.817 Spondylosis without myelopathy or radiculopathy, lumbosacral region (principal); M25.552 Pain in left hip; M54.50 Low back pain, unspecified; M53.3 Sacrococcygeal disorders, not elsewhere classified
CPT/HCPCS: 99204

== ENCOUNTER 2024-04-22 13:12 | Outpatient (REF) | payer OTHER, SELFPAY ==
--- NOTE | ~2024-04-22 | XR_ITS ---
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 Patient stated injury one year ago / chronic low back pain. COMPARISON: April 16, 2024 left hip, December 28, 2023 CT abdomen and pelvis. TECHNIQUE: 5 views of the lumbar spine. FINDINGS: Coarse calcifications in the right upper quadrant, possibly related to the gallbladder/biliary system, better characterized on CT scan. Mild levoscoliosis of the lumbar spine. Facet arthritis in the lower lumbar spine. Mild multilevel lumbar spondylosis. XR/XR lumbar spine 4V min IMPRESSION: 1. Mild multilevel lumbar spondylosis. 2. Facet arthritis in the lower lumbar spine. 3. Coarse calcifications in the right upper quadrant, possibly related to the gallbladder/biliary system, better characterized on CT scan.
== END 2024-04-22 13:13 | disposition home or self-care (01) ==
LOC: HO.XRAY 13:12
PROVIDERS: Visit Provider Nurse Practitioner Family
DX: M47.817 Spondylosis without myelopathy or radiculopathy, lumbosacral region (principal); M25.552 Pain in left hip
CPT/HCPCS: 72110; 99202

== ENCOUNTER 2024-05-01 11:20 | Emergency (ER) | payer OTHER, SELFPAY ==
[2024-05-01 11:22] VITALS: BP 127/71; PULSE 78; RESP 16; TEMP 36.6; O2SAT 98; BMI 32.4
--- NOTE | 2024-05-01 11:51 | ED_ITS ---
HPI - General Adult General Chief complaint: General Medical Stated complaint: Work accident - inhaled bleach? Time Seen by Provider: 05/01/24 11:34 Source: patient Mode of arrival: ambulatory Limitations: no limitations History of Present Illness ED Provider: Mykel Singh PA-C HPI narrative: 39 yold female with past medical history of diabetes and high cholesterol presents to ED for throat irritation,, eyes burning, watery eyes, burning sensation in throat, coughing and lung irritation after inhaling too much bleach. 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 She she placed large amounts of bleach on the floor bed and furnitures and soon after her eye started watering, her throat started itching and burning. Patient started coughing with chest irritation. Patient states also eyes was running and nares burning. Patient denies any chest pain or shortness of breath. Patient states starting to feel better and main complaint presently is just irritated eyes and irritated nares. Patient denies ingesting Clorox. Patient denies any Clorox going to her eyes or nose. Patient denies smoke inhalation or being in fire. Related Data Home Medications ?Medication ?Instructions ?Recorded ?Confirmed atorvastatin 40 mg tablet 40 mg PO DAILY 04/22/24 metformin 500 mg tablet,extended 500 mg PO DAILY 04/22/24 release 24 hr Previous Rx's ?Medication ?Instructions ?Recorded fluconazole 150 mg tablet 150 mg PO Q3D 2 doses #2 tabs 07/05/23 celecoxib 200 mg capsule (Celebrex) 200 mg PO BID 2 weeks #28 caps 04/16/24 lidocaine 5 % topical patch See Rx Instructions topical 04/22/24 .COMPLEX pain #30 ea Allergies Allergy/AdvReac Type Severity Reaction Status Date / Time No Known Allergies Allergy Verified 05/01/24 11:30 Review of Systems Review of Systems: Eyes and throat irritation, watery eyes, nares irritation, resolved chest burning. Yes all other systems are reviewed and are negative PMFSH Past Medical History Medical History (Updated 05/01/24 @ 12:34 by ALIVIA Roldan) Left hip pain Arthritis Type 2 diabetes mellitus Social History Social History Advance Directives: No Advance Directives Information Provided: Yes Do you have a plan to hurt others: No Plan Physical Exam ED Vital Signs: Vital Signs - 24 hr 05/01/24 11:22 05/01/24 12:59 Temperature 97.8 F 97.8 F Pulse Rate 78 84 Respiratory Rate 16 16 Blood Pressure 127/71 124/86 Pulse Oximetry 98 97 Oxygen Delivery Method Room Air Room Air BMI result Body Mass Index 32.4 Const General: cooperative, healthy appearing, comfortable, no acute distress, well developed, alert and awake Orientation/consciousness: oriented to time and patient oriented x3 HENMT Other: Negative for black tar in oral cavity or nares. Head: Yes normal to inspection, Yes No palpable skull fracture present, Yes normocephalic and Yes atraumatic General nose exam: Normal external nose present and Normal nares present (Watery nares) Face and sinus: Yes normal facial exam and Yes sinuses nontender Throat: Yes posterior oropharynx normal, Yes tonsils normal and Yes uvula midline Eyes Other: Bilateral watery eyes. General: appearance normal, both eyes and all related structures Neck Neck: Yes normal visual inspection, Yes full ROM, Yes no lymphadenopathy, Yes no meningeal signs, Yes trachea midline, Yes supple, No anterior neck swelling and No tender Chest Chest palpation & inspection: normal inspection of the chest and normal palpation of entire chest wall Resp Effort & Inspection: normal respiratory effort and able to speak in complete sentences Auscultation: clear to auscultation bilaterally Cardio Jugular venous distension: no JVD Heart sounds: S1 normal heart sound present and S2 normal heart sound present GI Inspection: Yes normal to inspection Palpation (GI): Soft to palpation, not firm, nontender, no guarding and not rigid General: No CVA tenderness and Yes no CVA tenderness Back/Spine/Pelvis Back: no CVA tenderness, No CVA tenderness and No back tenderness Skin General skin exam: no rashes or lesions noted, elasticity normal and turgor normal Neuro General: oriented to time, patient oriented x3, gait normal, tone normal, moves all extremities, Normal light touch and pain sensation, no meningeal signs, no focal motor deficits, CN's II-XI intact bilaterally and normal sensation to monofilament Extrem General: Yes normal to inspection, Yes full ROM and Yes capillary refill normal Psych Appearance: grossly normal, well kempt and not disheveled Medical Decision Making Medical Decision Making MDM Narrative: 39-year-old female presents to ED for symptoms after inhaling large amounts of bleach Clorox in the enclosed area. Patient states by accident she placed too much Clorox/bleach onto the floor and furnitures and the window was close and symptoms started immediately irritation of the eyes, throat, coughing, and nose. Patient denies any swelling of lips, rash, chest pain, leg swelling, fever, chills, or shortness of breath on exertion. Patient states presently feeling better. Symptoms are resolving. Patient observed in the ED. not suspecting any myocardial infarction, heart failure, gastrointestinal burning, airway swelling/closing, pneumonia, heart failure, pneumothorax, hemothorax, PE, anaphylaxis, caustic injury to the eyes, or caustic injuries to airway or GI tract. No need for any EKG, or imaging. No need for labs. Patient states feeling better and drinking water. Passed p.o. challenge. Patient explained worrisome signs and will follow-up with or connection. Patient informed to return to the ED immediately if she has worrisome signs Differential Diagnosis Differential Diagnoses: The differential diagnosis associated with the presentation includes (Chemical exposure,) Admission/Observation Consideration of admission/observation: Escalation of care including admission/observation considered Independent Historian Clinical information obtained from an independent historian. History obtained from or confirmed by: Other (Patient) External Record Review External record reviewed: Other (Prior records) Discharge Plan Discharge Clinical Impression: Exposure to chemical irritant Patient Disposition: Home, Self-Care Instructions: Contact Precautions (ED) Additional Instructions: Return to the ED immediately for any swelling of the lips, swelling of the tongue, sensation of throat closing, rash, fever, chills, chest pain, of breath, change in vision, loss of vision, eye pain, leg swelling, pitting edema, coughing up blood, vomiting blood, blood in stool, abdominal pain, dizziness, or any other concerning symptoms. Recommend follow-up with the primary care provider. Prescriptions: No Action fluconazole 150 mg tablet 150 mg PO Q3D Qty: 2 0RF celecoxib [Celebrex] 200 mg capsule 200 mg PO BID 14 Days Qty: 28 0RF atorvastatin 40 mg tablet 40 mg PO DAILY metformin 500 mg tablet extended release 24 hr 500 mg PO DAILY lidocaine 5 % adhesive patch,medicated See Rx Instructions topical .COMPLEX Qty: 30 0RF Rx Instructions: leave on most painful area for up to 12 hrs topical Referrals: [facility] [Outside] (Inhaled Bleech) Stand Alone Forms: Work/School Release Interventions: ED Discharge Assessment Last Done: 05/01/24 12:59 Discharge Date/Time: 05/01/24 13:00 Print Language: Ivorian
[2024-05-01 12:59] VITALS: BP 124/86; PULSE 84; RESP 16; TEMP 36.6; O2SAT 97
== END 2024-05-01 13:00 | disposition home or self-care (01) ==
PROVIDERS: Emergency Provider Emergency Medicine; PCP Internal Medicine
DX: J02.9 Acute pharyngitis, unspecified (principal); R05.9 Cough, unspecified; J39.2 Other diseases of pharynx; Z57.5 Occupational exposure to toxic agents in other industries
CPT/HCPCS: 99282; 99283

== ENCOUNTER 2024-05-07 09:43 | Emergency (ER) | payer OTHER, SELFPAY ==
--- NOTE | ~2024-05-07 | XR_ITS ---
EXAMINATION: XR CHEST CLINICAL INFORMATION: Persistent cough COMPARISON: None available. TECHNIQUE: 2 views of the chest were obtained. FINDINGS: Lungs clear. No pleural effusions. Heart and pulmonary vessels normal. XR/XR chest 2V IMPRESSION: No active disease.
[2024-05-07 09:54] VITALS: BP 120/84; PULSE 73; RESP 16; TEMP 36.9; O2SAT 98; BMI 29.1
[2024-05-07 10:14] LABS: MANUAL DIFF FLAG NO
[2024-05-07 10:19] LABS: Basophils Percent Auto 0.5 % (0-2); Eosinophils Absolute Auto 0.2 X10*3/uL (0.0-0.4); Eosinophils Percent Auto 3.7 % (0-4); Hematocrit 42.1 % (37.0-47.0); Hemoglobin 14.1 g/dl (12.0-16.0); Imm Gran Abs Auto 0.01 X10*3/uL (0.00-0.03); Imm Gran Pct Auto 0.2 % (0.0-0.4); Lymphocytes Absolute Auto 1.8 X10*3/uL (1.2-4.9); Lymphocytes Percent Auto 41.7 % (20-40); Mean Corpuscular HGB Conc 33.5 g/dl (31.0-35.0); Mean Corpuscular Volume 80.5 fL (80.0-98.0); Mean Platelet Volume 10.3 fL (9.4-12.3); Monocytes Absolute Auto 0.3 X10*3/uL (0.1-1.2); Monocytes Percent Auto 6.9 % (2-11); Platelet Count 276 X10*3/uL (160-400); Red Blood Count 5.23 X10*6/uL (4.20-5.50); Red Cell Distribution Width 12.6 % (11.0-16.0); White Blood Count 4.3 X10*3/uL (4.8-10.8)
[2024-05-07 10:49] LABS: Anion Gap 13 (12-20); Blood Urea Nitrogen 13 mg/dL (9-16); Calcium 9.1 mg/dL (8.4-10.2); Carbon Dioxide 25 mmol/L (22-29); Chloride 101 mmol/L (96-108); Creatinine Clr Calc Pharmacy 86.4; Estimated Glomerular Filt Rate > 60; Glucose Random 456 mg/dL (60-115); Potassium 3.9 mmol/L (3.3-5.1); Sodium 135 mmol/L (135-145)
--- NOTE | 2024-05-07 11:18 | PC.NURSE ---
Critical glucose level of 456 reported from [place] in chemistry. Sera Conner NP made aware.
[2024-05-07 11:33] LABS: Beta-Hydroxybutyrate 0.06 mmol/L (0.02-0.27)
[2024-05-07 18:25] VITALS: BP 140/79; PULSE 69; RESP 14; TEMP 37; O2SAT 100
--- NOTE | 2024-05-07 18:29 | ED_ITS ---
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 and stayed in the room for about half an hour since then felt pain in the chest with cough getting better now but still coughing and feel pain in the chest also complaining of body aches headache for last 2 days Related Data Home Medications ?Medication ?Instructions ?Recorded ?Confirmed atorvastatin 40 mg tablet 40 mg PO DAILY 04/22/24 metformin 500 mg tablet,extended 500 mg PO DAILY 04/22/24 release 24 hr Previous Rx's ?Medication ?Instructions ?Recorded fluconazole 150 mg tablet 150 mg PO Q3D 2 doses #2 tabs 07/05/23 celecoxib 200 mg capsule (Celebrex) 200 mg PO BID 2 weeks #28 caps 04/16/24 lidocaine 5 % topical patch See Rx Instructions topical 04/22/24 .COMPLEX pain #30 ea benzonatate 200 mg capsule 200 mg PO TID PRN cough #30 caps 05/07/24 Allergies Allergy/AdvReac Type Severity Reaction Status Date / Time No Known Allergies Allergy Verified 05/07/24 09:57 FOR[facility], [facility] Past Medical History Medical History (Updated 05/07/24 @ 19:45 by Sudheer Ruvalcaba MD) Left hip pain Arthritis Type 2 diabetes mellitus Social History Social History Advance Directives: No Advance Directives Information Provided: Yes Physical Exam ED Vital Signs: Vital Signs - 24 hr 05/07/24 09:54 05/07/24 18:25 Temperature 98.5 F 98.6 F Pulse Rate 73 69 Respiratory Rate 16 14 Blood Pressure 120/84 140/79 H Pulse Oximetry 98 100 Oxygen Delivery Method Room Air Room Air BMI result Body Mass Index 29.1 Medical Decision Making Medical Decision Making MDM Narrative: Patient with minor exposure to Clorox about a week ago complaining of dry cough noted to have elevated blood sugar secondary to noncompliant to metformin chest x-ray negative for any infiltrate will give some cough drops patient was given Lantus insulin and Humalog in the ER advised to increase the dose of metformin to 500 mg twice daily patient has been more sick for last 2 days COVID test is positive Differential Diagnosis Differential Diagnoses: The differential diagnosis associated with the presentation includes Lab Data MDM Lab Attestation statement: I reviewed the patient's lab results. 05/07/24 10:11 05/07/24 10:11 Labs: Lab Results 05/07/24 05/07/24 05/07/24 Range/Units 10:11 18:26 18:37 WBC 4.3 L (4.8-10.8) X10*3/uL RBC 5.23 (4.20-5.50) X10*6/uL Hgb 14.1 (12.0-16.0) g/dl Hct 42.1 (37.0-47.0) % MCV 80.5 (80.0-98.0) fL MCH 27.0 (27.0-33.0) pg MCHC 33.5 (31.0-35.0) g/dl RDW 12.6 (11.0-16.0) % Plt Count 276 (160-400) X10*3/uL MPV 10.3 (9.4-12.3) fL Immature Gran % (Auto) 0.2 (0.0-0.4) % Neut % (Auto) 47.0 (45-73) % Lymph % (Auto) 41.7 H (20-40) % [place] % (Auto) 6.9 (2-11) % Eos % (Auto) 3.7 (0-4) % Baso % (Auto) 0.5 (0-2) % Lymph # (Auto) 1.8 (1.2-4.9) X10*3/uL [place] # (Auto) 0.3 (0.1-1.2) X10*3/uL Eos # (Auto) 0.2 (0.0-0.4) X10*3/uL Baso # (Auto) 0.0 (0.0-0.2) X10*3/uL Abs Immat Gran (auto) 0.01 (0.00-0.03) X10*3/uL Absolute Neuts (auto) 2.0 (2.0-8.3) x10*3/uL Absolute Nucleated RBC 0.000 (0.0-0.012) X10*3/uL Nucleated RBC % (auto) 0.0 (0.0-0.2) /100WBC Sodium 135 (135-145) mmol/L Potassium 3.9 (3.3-5.1) mmol/L Chloride 101 (96-108) mmol/L Carbon Dioxide 25 (22-29) mmol/L Anion Gap 13 (12-20) BUN 13 (9-16) mg/dL Creatinine 0.90 (0.5-1.4) mg/dL Estim Creat Clear Calc 86.4 Estimated GFR > 60 POC Glucose 372 H* (60-115) mg/dL Random Glucose 456 H* (60-115) mg/dL Calcium 9.1 D (8.4-10.2) mg/dL Beta-Hydroxybutyrate 0.06 (0.02-0.27) mmol/L Influenza Type A (PCR) NEGATIVE (Negative) Influenza Type B (PCR) NEGATIVE (Negative) RSV RNA Qual (PCR) NEGATIVE (Negative) SARS-CoV-2 RNA (RT-PCR) POSITIVE A (Negative) Independent Interpretation I performed an independent interpretation of an: Plain X-Ray Radiology Impression Discussion of test interpretation with radiology: I have reviewed the radiologist's reading. Discharge Plan Discharge Clinical Impression: Uncontrolled diabetes mellitus with hyperglycemia, Bronchitis due to chemical Patient Disposition: Home, Self-Care Instructions: Pneumonitis (ED), Type 2 Diabetes Management for Adults (ED) Additional Instructions: Drink plenty of fluids Take your metformin daily, increase the dose to 500 mg twice daily Follow up with your PCP about blood sugar Cough drops as prescribed Prescriptions: New benzonatate 200 mg capsule 200 mg PO TID PRN (Reason: cough) Qty: 30 0RF No Action fluconazole 150 mg tablet 150 mg PO Q3D Qty: 2 0RF celecoxib [Celebrex] 200 mg capsule 200 mg PO BID 14 Days Qty: 28 0RF atorvastatin 40 mg tablet 40 mg PO DAILY metformin 500 mg tablet extended release 24 hr 500 mg PO DAILY lidocaine 5 % adhesive patch,medicated See Rx Instructions topical .COMPLEX Qty: 30 0RF Rx Instructions: leave on most painful area for up to 12 hrs topical Stand Alone Forms: Work/School Release Print Language: Palestinian
[2024-05-07 18:43] LABS: Glucose, Whole Blood 372 mg/dL (60-115)
[2024-05-07 19:09] LABS: Influenza A PCR NEGATIVE (Negative); Influenza B PCR NEGATIVE (Negative); Resp Syncy Virus RNA Qual PCR NEGATIVE (Negative); SARS COV2 PCR INHOUSE POSITIVE (Negative)
[2024-05-07 19:54] VITALS: BP 126/78; PULSE 73; RESP 15; TEMP 37.1; O2SAT 99
[2024-05-07] MEDS: Insulin Lispro 100 UNIT/ML 3 ML VIAL 10 UNIT SUBCUT (20:02)
[2024-05-07] MEDS: metFORMIN HCl 500 MG TABLET PO (20:02)
[2024-05-07] MEDS: Benzonatate 100 MG CAPSULE 200 MG PO (20:05)
[2024-05-07] MEDS: Insulin Glargine,Hum.rec.anlog 100 UNIT/ML 10 ML VIAL 20 UNIT SUBCUT (20:06)
[2024-05-07 20:13] VITALS: BP 126/78; PULSE 73; RESP 15; TEMP 37.1; O2SAT 99
== END 2024-05-07 20:14 | disposition home or self-care (01) ==
PROVIDERS: Physician Assistant Medical; Registered Nurse Emergency; Emergency Provider Internal Medicine; PCP Internal Medicine
DX: J68.0 Bronchitis and pneumonitis due to chemicals, gases, fumes and vapors (principal); T54.91XA Toxic effect of unspecified corrosive substance, accidental (unintentional), initial encounter; Y92.89 Other specified places as the place of occurrence of the external cause; E11.65 Type 2 diabetes mellitus with hyperglycemia; R05.9 Cough, unspecified; M79.10 Myalgia, unspecified site; R51.9 Headache, unspecified; Z03.818 Encounter for observation for suspected exposure to other biological agents ruled out; Z79.84 Long term (current) use of oral hypoglycemic drugs
CPT/HCPCS: 0241U; 36415; 71046; 80048; 82010; 82947; 85025; 99283

== ENCOUNTER 2024-05-10 20:25 | Emergency (ER) | payer OTHER, SELFPAY ==
[2024-05-10 20:27] VITALS: BP 134/86; PULSE 81; RESP 18; TEMP 36.8; O2SAT 99; BMI 28.4
[2024-05-10 20:53] LABS: Glucose, Whole Blood 221 mg/dL (60-115)
[2024-05-10 20:53] LABS: MANUAL DIFF FLAG NO
[2024-05-10 20:54] LABS: Basophils Percent Auto 0.3 % (0-2); Eosinophils Absolute Auto 0.1 X10*3/uL (0.0-0.4); Eosinophils Percent Auto 1.9 % (0-4); Hematocrit 45.2 % (37.0-47.0); Hemoglobin 15.7 g/dl (12.0-16.0); Imm Gran Abs Auto 0.02 X10*3/uL (0.00-0.03); Imm Gran Pct Auto 0.3 % (0.0-0.4); Lymphocytes Absolute Auto 2.6 X10*3/uL (1.2-4.9); Lymphocytes Percent Auto 41.8 % (20-40); Mean Corpuscular HGB Conc 34.7 g/dl (31.0-35.0); Mean Corpuscular Hemoglobin 27.1 pg (27.0-33.0); Mean Corpuscular Volume 78.1 fL (80.0-98.0); Mean Platelet Volume 9.8 fL (9.4-12.3); Monocytes Absolute Auto 0.3 X10*3/uL (0.1-1.2); Monocytes Percent Auto 5.3 % (2-11); Neutrophils Absolute Auto 3.1 x10*3/uL (2.0-8.3); Neutrophils Percent Auto 50.4 % (45-73); Platelet Count 346 X10*3/uL (160-400); Red Blood Count 5.79 X10*6/uL (4.20-5.50); Red Cell Distribution Width 12.6 % (11.0-16.0); White Blood Count 6.2 X10*3/uL (4.8-10.8)
[2024-05-10 21:09] LABS: Alanine Aminotransferase 24 U/L (0-31); Alkaline Phosphatase 112 U/L (39-117); Anion Gap 13 (12-20); Aspartate Amino Transferase 14 U/L (5-31); Bilirubin Total 0.3 mg/dL (0.0-1.0); Blood Urea Nitrogen 10 mg/dL (9-16); Calcium 9.7 mg/dL (8.4-10.2); Carbon Dioxide 30 mmol/L (22-29); Chloride 101 mmol/L (96-108); Creatinine Clr Calc Pharmacy 90.5; Estimated Glomerular Filt Rate > 60; Glucose Random 231 mg/dL (60-115); Lipase 56 U/L (8-78); Potassium 4.7 mmol/L (3.3-5.1); Sodium 139 mmol/L (135-145); Total Protein 7.9 g/dL (6.5-8.0)
--- NOTE | 2024-05-10 22:31 | ED.NAVMDI ---
HPI - Nausea/Vomiting/Diarrhea General Chief complaint: Nausea/Vomiting/Diarrhea Stated complaint: Vomiting Time Seen by Provider: 05/10/24 22:21 Source: patient Mode of arrival: ambulatory Limitations: no limitations History of Present Illness ED Provider: arlin SILVA Narrative: Patient is diabetic on Trulicity and metformin was seen here on 05/07 with upper respiratory symptoms diagnosed as COVID comes for nausea vomiting started earlier today unable to eat or drink much all day no diarrhea no significant abdominal pain feel body aches and tired no URI symptoms Related Data Home Medications ?Medication ?Instructions ?Recorded ?Confirmed atorvastatin 40 mg tablet 40 mg PO DAILY 04/22/24 metformin 500 mg tablet,extended 500 mg PO DAILY 04/22/24 release 24 hr Previous Rx's ?Medication ?Instructions ?Recorded fluconazole 150 mg tablet 150 mg PO Q3D 2 doses #2 tabs 07/05/23 celecoxib 200 mg capsule (Celebrex) 200 mg PO BID 2 weeks #28 caps 04/16/24 lidocaine 5 % topical patch See Rx Instructions topical 04/22/24 .COMPLEX pain #30 ea benzonatate 200 mg capsule 200 mg PO TID PRN cough #30 caps 05/07/24 ucfdojfeuq-llxpdxddthvnk-krolthkj 1 tab PO Q6H PRN haeadace #20 tabs 05/10/24 50 mg-325 mg-40 mg tablet ondansetron 4 mg disintegrating 4 mg PO Q6-8H PRN nausea and 05/10/24 tablet vomiting #7 tabs Allergies Allergy/AdvReac Type Severity Reaction Status Date / Time No Known Allergies Allergy Verified 05/10/24 20:37 Review of Systems Review of Systems: Yes all other systems are reviewed and are negative [facility] Past Medical History Medical History Left hip pain Arthritis Type 2 diabetes mellitus Social History Social History Use of substances other than those prescribed or required for medical reasons: No Advance Directives: No Advance Directives Information Provided: No Do you have a plan to hurt others: No Plan Physical Exam Vital Signs: Vital Signs: Last Vital Signs Temp 99.0 F 05/11/24 00:08 Pulse 69 05/11/24 00:08 Resp 18 05/11/24 00:08 BP 122/64 07/14/24 00:08 Pulse Ox 99 05/11/24 00:08 O2 Del Method Room Air 05/11/24 00:08 BMI result Body Mass Index 28.4 Appearance: Alert. Oriented X3. No acute distress. Anxious Eyes: No pallor or icterus ENT: Pharynx normal. Oral Mucosa moist Neck: Normal inspection. Neck supple. CVS: Normal heart rate and rhythm. Pulses normal. Respiratory: No respiratory distress. Equal air entry bilateral, no wheezing/rales/rhonchi Abdomen: Soft and nontender. Bowel sounds are present, no mass palpable, no CVA tenderness Skin: Skin warm and dry. Normal skin color. Normal skin turgor. Extremities: No lower extremity edema. No calf tenderness Neuro: Oriented X 3. Medications Administered Discontinued Medications Generic Name Dose Route Start Last Admin Trade Name Freq PRN Reason Stop Dose Admin Acetaminophen/Butalbital/Caffeine 1 tab 05/10/24 23:42 05/10/24 23:47 Butalb/Acetamin/Caff 50/325/40 Tablet PO 05/10/24 23:43 1 tab ONCE ONE Administration Ondansetron HCl 4 mg 05/10/24 22:40 05/10/24 22:43 Ondansetron Odt 4 Mg Tab.Rapdis TRANSLINGU 05/10/24 22:41 4 mg ONCE ONE Administration Medical Decision Making Medical Decision Making [facility] Narrative: Patient's recent diagnosis of COVID on 05/07 comes here for similar complaints of body aches nausea vomiting labs are stable will treat her symptomatically Lab Data [facility] Lab Attestation statement: I reviewed the patient's lab results. 05/10/24 20:47 05/10/24 20:47 Labs: Lab Results 05/10/24 05/10/24 Range/Units 20:46 20:47 WBC 6.2 (4.8-10.8) X10*3/uL RBC 5.79 H (4.20-5.50) X10*6/uL Hgb 15.7 (12.0-16.0) g/dl Hct 45.2 (37.0-47.0) % MCV 78.1 L (80.0-98.0) fL MCH 27.1 (27.0-33.0) pg MCHC 34.7 (31.0-35.0) g/dl RDW 12.6 (11.0-16.0) % Plt Count 346 D (160-400) X10*3/uL MPV 9.8 (9.4-12.3) fL Immature Gran % (Auto) 0.3 (0.0-0.4) % Neut % (Auto) 50.4 (45-73) % Lymph % (Auto) 41.8 H (20-40) % [place] % (Auto) 5.3 (2-11) % Eos % (Auto) 1.9 (0-4) % Baso % (Auto) 0.3 (0-2) % Lymph # (Auto) 2.6 (1.2-4.9) X10*3/uL [place] # (Auto) 0.3 (0.1-1.2) X10*3/uL Eos # (Auto) 0.1 (0.0-0.4) X10*3/uL Baso # (Auto) 0.0 (0.0-0.2) X10*3/uL Abs Immat Gran (auto) 0.02 (0.00-0.03) X10*3/uL Absolute Neuts (auto) 3.1 (2.0-8.3) x10*3/uL Absolute Nucleated RBC 0.000 (0.0-0.012) X10*3/uL Nucleated RBC % (auto) 0.0 (0.0-0.2) /100WBC Sodium 139 (135-145) mmol/L Potassium 4.7 D (3.3-5.1) mmol/L Chloride 101 (96-108) mmol/L Carbon Dioxide 30 H (22-29) mmol/L Anion Gap 13 (12-20) BUN 10 (9-16) mg/dL Creatinine 0.88 (0.5-1.4) mg/dL Estim Creat Clear Calc 90.5 Estimated GFR > 60 POC Glucose 221 H (60-115) mg/dL Random Glucose 231 H (60-115) mg/dL Calcium 9.7 D (8.4-10.2) mg/dL Total Bilirubin 0.3 (0.0-1.0) mg/dL AST 14 (5-31) U/L ALT 24 (0-31) U/L Alkaline Phosphatase 112 (39-117) U/L Total Protein 7.9 (6.5-8.0) g/dL Albumin 4.0 (3.5-5.0) g/dL Lipase 56 (8-78) U/L Discharge Plan Discharge Clinical Impression: COVID-19 Patient Disposition: Home, Self-Care Instructions: COVID-19 (Coronavirus Disease 2019) (ED) Additional Instructions: Drink plenty of fluids Zofran for nausea Fioricet for headaches Follow with your PCP Prescriptions: New yruprzekqe-kuapiifmlsrnz-uzzp 50-325-40 mg tablet 1 tab PO Q6H PRN (Reason: haeadace) Qty: 20 0RF ondansetron 4 mg tablet,disintegrating 4 mg PO Q6-8H PRN (Reason: nausea and vomiting) Qty: 7 0RF No Action fluconazole 150 mg tablet 150 mg PO Q3D Qty: 2 0RF celecoxib [Celebrex] 200 mg capsule 200 mg PO BID 14 Days Qty: 28 0RF benzonatate 200 mg capsule 200 mg PO TID PRN (Reason: cough) Qty: 30 0RF atorvastatin 40 mg tablet 40 mg PO DAILY metformin 500 mg tablet extended release 24 hr 500 mg PO DAILY lidocaine 5 % adhesive patch,medicated See Rx Instructions topical .COMPLEX Qty: 30 0RF Rx Instructions: leave on most painful area for up to 12 hrs topical Interventions: ED Discharge Assessment Last Done: 05/11/24 00:08 Discharge Date/Time: 05/11/24 00:09 Print Language: Urdu
[2024-05-10] MEDS: Ondansetron ODT 4 MG TAB.RAPDIS TRANSLINGU (22:43)
[2024-05-10 22:51] VITALS: BP 122/64; PULSE 69; RESP 18; TEMP 37.2; O2SAT 99
[2024-05-10] MEDS: Butalb/Acetamin/Caff 50/325/40 TABLET 1 TAB PO (23:47)
[2024-05-11 00:08] VITALS: BP 122/64; PULSE 69; RESP 18; TEMP 37.2; O2SAT 99
== END 2024-05-11 00:09 | disposition home or self-care (01) ==
PROVIDERS: Emergency Provider Internal Medicine; PCP Internal Medicine
DX: U07.1 COVID-19 (principal); R11.2 Nausea with vomiting, unspecified
CPT/HCPCS: 36415; 80053; 82947; 83690; 85025; 99283; 99284